=== PATIENT | male | born 1950 | race Caucasian/White ===

== ENCOUNTER 2017-12-26 20:00 | Emergency (ER) | payer MEDICARE, BC, SELFPAY ==
[2017-12-26 20:11] VITALS: BP 131/77; PULSE 85; RESP 15; TEMP 37; O2SAT 97
--- NOTE | 2017-12-26 21:31 | ED.GENADUL_ITS ---
Discharge Plan Disposition Patient Disposition: HOME Condition: Improving Discharge Details Chief Complaint: Laceration Clinical Impression: Laceration of finger of right hand Primary Care Provider: Jerod Trinidad ED Provider: Cain Quinonez Home Meds and New Rx's Prescriptions: New cephalexin [Keflex] 500 mg capsule 500 mg PO QID Qty: 12 RF: 0 Continue ibuprofen 200 MG capsule 2 tab PO daily prn RF: 0 garlic 1 EACH tablet 1 ea PO DAILY RF: 0 saw palmto frt xtr-zinc [place] [Saw [place] Extract (w-zinc)] 1 EACH capsule 1 ea PO DAILY RF: 0 magnesium amino acid chelate 100 MG tablet 100 mg PO DAILY RF: 0 glucosam-chond ka-dolkcr-kc ac 1 EACH capsule 1 ea PO DAILY RF: 0 krill kzo-cibmk-7-dha-epa [Fish Oil with Krill] 1 EACH capsule,delayed release (DR/EC) 2 ea PO DAILY RF: 0 aloecure 2 oz PO DAILY RF: 0 Discharge Instructions Instructions: Care For Your Stitches (ED), Finger Laceration (ED) Additional Instructions: Return immediately to the emergency department for any signs of infection which may include purulent drainage, severe change in pain or discomfort, or significant swelling to the affected area. Take antibiotic as prescribed and until fully complete. Return to the emergency department in 10 days for suture removal if no complications occurred Referrals: [facility] Emergency Dept. [Outside] (Return to the emergency department 10 days for suture removal) Discharge Data Discharge Date/Time-TO BE ENTERED AT DEPARTURE: 12/26/17 21:50 Medical Decision Making [facility] Narrative Medical decision making narrative: chief complaint of right little finger laceration. Right dorsal aspect of little finger laceration measuring total of 3.5 cm. Verbal consent was obtained for wound closure. Digital block technique with 2.5 mL's of 1% lidocaine. A finger tourniquet was applied. Wound explored to base in bloodless field and tendon is visible with no obvious damage no range of motion issues no loss of strength. Wound closed with 4-0 Prolene and 7 simple interrupted sutures were placed. Wound covered with bacitracin and sterile gauze. Patient encouraged to return for signs of infection otherwise return in 10 days for suture removal. Due to depth of wound and exposed tendon patient was placed on Keflex every 6 hours ?3 days patient up-to-date on tetanus. HPI - General Adult General Mode of arrival: ambulatory . Date/Time Provider Initiated Documentation: 12/26/17 20:23 . Limitations to Documentation: no limitations . Information obtained by: patient and RN notes reviewed . History of Present Illness 67 year old M presents to the emergency department with the chief complaint of right little finger laceration, described as mild, with intensity rated at 2. Quality is described as aching, and is localized to the right and upper extremity. Patient reports no radiation. Patient started experiencing this hour(s) (1) and it has been constant. No relieving factors improve symptom(s ), No exacerbating factors reported . Patient notes no other symptoms.. Patient did receive the following treatments prior to arrival, none Related Data Home Medications Medication Instructions Recorded Confirmed Aloecure 2 oz PO DAILY 08/28/16 12/26/17 garlic 1 ea PO DAILY 08/28/16 12/26/17 glucosam-chond ol-hgsrws-zy ac 1 ea PO DAILY 08/28/16 12/26/17 ibuprofen 2 tab PO daily prn 08/28/16 12/26/17 krill cri-lceso-4-dha-epa [Fish 2 ea PO DAILY 08/28/16 12/26/17 Oil with Krill] magnesium amino acid chelate 100 mg PO DAILY 08/28/16 12/26/17 saw palmto frt xtr-zinc [place] 1 ea PO DAILY 08/28/16 12/26/17 [Saw [place] Extract (w-zinc)] Previous Rx's Medication Instructions Recorded cephalexin [Keflex] 500 mg PO QID #12 cap NS 12/26/17 Allergies Allergy/AdvReac Type Severity Reaction Status Date / Time No Known Allergies Allergy Unverified 12/26/17 20:16 General Stated Complaint: Laceration MANDY: 4 Review of Systems Constitutional Denies body ache(s), Denies chills and Denies fever(s) Cardiovascular Denies chest pain and Denies dyspnea Respiratory Denies dyspnea Gastrointestinal Denies abdominal pain, Denies nausea and Denies vomiting Integumentary/Breasts Reports as per HPI and Reports wounds Neurologic Denies confusion and Denies sensory deficit Psychiatric Denies confusion PFSH Family History Mother Heart disease Father Neoplasm Brother Essential hypertension Brother Essential hypertension Brother No problems noted. Brother Heart disease Grandfather Essential hypertension Cerebrovascular accident Grandfather Heart disease Grandmother Heart disease Grandmother No problems noted. Son No problems noted. Daughter Depression Social History Smoking/Tobacco Use Status: Former Tobacco Use Exam Const General: cooperative, no acute distress and not ill appearing Orientation: alert, awake and oriented x3 HENMT Mouth: moist mucous membranes Resp Effort & Inspection: normal respiratory effort, able to speak in complete sentences and no respiratory distress Cardio Rate: regular rate Rhythm: regular rhythm Skin General skin exam: no rashes or lesions noted Neuro General: alert, awake, oriented x3, moves all extremities and no focal motor deficits Sensory Exam: no sensory deficits noted Extrem Right upper extremity: wrist Details: normal to inspection and hand Details: normal capillary refill, neuromotor exam normal, neurosensory exam normal, tendon exam normal, normal ROM of fingers, laceration (dorsal little finger 3.5cm deep with mild bleeding) and other (Appropriate 2 point discrimination is noted) Course Vital Signs Temperature 37.0 C 12/26/17 20:11 Pulse 85 12/26/17 20:11 Respiratory Rate 15 12/26/17 20:11 Blood Pressure 131/77 12/26/17 20:11 Pulse Oximetry 97 12/26/17 20:11 Temperature 37.0 C 12/26/17 20:11 Pulse 85 12/26/17 20:11 Respiratory Rate 15 12/26/17 20:11 Blood Pressure 131/77 12/26/17 20:11 Pulse Oximetry 97 12/26/17 20:11
[2017-12-26] MEDS: Cephalexin 500 MG CAP 1500 MG PO (21:50)
[2017-12-26 21:51] VITALS: BP 110/80; PULSE 88; RESP 18; TEMP 36.8; O2SAT 99
== END 2017-12-26 21:50 | disposition home or self-care (01) ==
LOC: ER 21:39
PROVIDERS: Emergency Provider Nurse Practitioner Family; PCP Emergency Medicine
DX: S61.216A Laceration without foreign body of right little finger without damage to nail, initial encounter (principal); W26.9XXA Contact with unspecified sharp object(s), initial encounter
CPT/HCPCS: 12002; 99283

== ENCOUNTER 2019-02-03 07:00 | Outpatient (CLI) | payer MEDICARE, BC, SELFPAY ==
[2019-02-04 13:18] LABS: PSA, Screening 3.8 ng/ml (0-4.5)
== END 2019-02-03 07:20 ==
PROVIDERS: PCP Emergency Medicine; Visit Provider Emergency Medicine
DX: N40.1 Benign prostatic hyperplasia with lower urinary tract symptoms (principal); Z12.5 Encounter for screening for malignant neoplasm of prostate
CPT/HCPCS: 36415; 84153

== ENCOUNTER 2019-05-04 10:51 | Emergency (ER) | payer MEDICARE, BC, SELFPAY ==
[2019-05-04 10:56] VITALS: BP 115/97; PULSE 70; RESP 15; TEMP 36.4; O2SAT 97
--- NOTE | 2019-05-04 11:06 | ED.GENADUL_ITS ---
Discharge Plan Disposition Patient Disposition: HOME Condition: Stable Discharge Details Chief Complaint: ThroatFB Clinical Impression: Esophageal abrasion Primary Care Provider: Jerod Trinidad ED Provider: Fred Taylor Home Meds and New Rx's Prescriptions: Continued triamcinolone acetonide 0.1 % cream 1 applic TP BID Qty: 80 RF: 0 ibuprofen 200 MG capsule 2 tab PO daily prn RF: 0 garlic 1 EACH tablet 1 ea PO DAILY RF: 0 Saw [place] Extract (w-zinc) 1 EACH capsule 1 ea PO DAILY RF: 0 magnesium amino acid chelate 100 MG tablet 100 mg PO DAILY RF: 0 glucosam-chond uk-ixjftw-ci ac 1 EACH capsule 1 ea PO DAILY RF: 0 Fish Oil with Krill 1 EACH capsule,delayed release(DR/EC) 2 ea PO DAILY RF: 0 aloecure 2 oz PO DAILY RF: 0 Discharge Instructions Additional Instructions: May use 5 to 10 cc of Pepto-Bismol 2-3 times per day as needed for comfort. Please note that this can turn your stool black. Return if you have difficulty breathing, difficulty swallowing, develop a fever or chest pain. Continue all regularly prescribed medications. I recommend a soft diet for 24 hours. Medical Decision Making 68-year-old male presents from home complaining of foreign body sensation in his throat after swallowing a piece of plastic yesterday. He did not choke, vomit, have shortness of breath or chest discomfort. He has had some mild irritative discomfort with swallowing that persist today. Soft tissue neck x-ray obtained without evidence of foreign body. Discussed with the patient this likely represents mucosal irritation. He may trial PRN use of Pepto-Bismol for the coating properties of bismuth. He understands to r eturn if he develops shortness of breath, fever, worsening discomfort, inability to swallow, or any other acute concern. HPI General Mode of arrival: ambulatory . Date/Time Provider Initiated Documentation: 05/04/19 10:53 . Limitations to Documentation: no limitations . Information obtained by: patient . History of Present Illness 68 year old M presents to the emergency department with the chief complaint of Foreign body sensation after swallowing piece of plastic, described as mild, Quality is described as dull, and is localized to the mouth. Patient reports no radiation. Patient started experiencing this day(s) and it has been intermittent. No relieving factors improve symptom(s), No exacerbating factors reported . Patient notes denies chest pain and shortness of breath. Patient did receive the following treatments prior to arrival, none Related Data Home Medications Medication Instructions Recorded Confirmed Aloecure 2 oz PO DAILY 08/28/16 05/04/19 Fish Oil with Krill 2 ea PO DAILY 08/28/16 05/04/19 Saw [place] Extract (w-zinc) 1 ea PO DAILY 08/28/16 05/04/19 garlic 1 ea PO DAILY 08/28/16 05/04/19 glucosam-chond be-xakwjl-br ac 1 ea PO DAILY 08/28/16 05/04/19 ibuprofen 2 tab PO daily prn 08/28/16 05/04/19 magnesium amino acid chelate 100 mg PO DAILY 08/28/16 05/04/19 triamcinolone acetonide 0.1 % 1 applic TP BID #80 gm 01/29/19 05/04/19 topical cream Previous Rx's Medication Instructions Recorded triamcinolone acetonide 0.1 % 1 applic TP BID #80 gm 01/29/19 topical cream Allergies Allergy/AdvReac Type Severity Reaction Status Date / Time No Known Allergies Allergy Verified 05/04/19 11:01 General Stated Complaint: ThroatFB MANDY: 3 Review of Systems Narrative: 4 systems reviewed and otherwise negative [facility] Social History Smoking/Tobacco Use Status: Former Tobacco Use Alcohol Intake: never Drug use: Never Do you feel safe at home: Yes Do you feel safe in your relationship?: Yes Course Vital Signs Vital signs: Vital Signs Temperature 36.4 C L 05/04/19 10:56 Pulse 70 05/04/19 10:56 Respiratory Rate 15 05/04/19 10:56 Blood Pressure 115/97 H 05/04/19 10:56 Pulse Oximetry 97 05/04/19 10:56 Temperature 36.4 C L 05/04/19 10:56 Temperature Source Temporal Artery Scan 05/04/19 10:56 Pulse 70 05/04/19 10:56 Respiratory Rate 15 05/04/19 10:56 Respiratory Effort Non-Labored 05/04/19 11:00 Blood Pressure 115/97 H 05/04/19 10:56 Blood Pressure Position Sitting 05/04/19 10:56 Pulse Oximetry 97 01/21/20 10:56 Oxygen Delivery Method Room Air 05/04/19 10:56 Oxygen Flow Rate 0 05/04/19 10:56 Pain Level 0 05/04/19 10:56
--- NOTE | 2019-05-04 11:14 | DI.RAD_ITS ---
EXAM: XR SOFT TISSUE NECK CLINICAL HISTORY: Swallowed FB, FB sensation TECHNIQUE: COMPARISON: No exams were available for comparison FINDINGS: Two views were obtained. No gross foreign body identified. Laryngeal air column is unremarkable. N o prevertebral soft tissue swelling. IMPRESSION: Negative radiographic study.
[2019-05-04 11:58] VITALS: BP 147/79; PULSE 60; RESP 16; O2SAT 98
== END 2019-05-04 11:58 | disposition home or self-care (01) ==
PROVIDERS: Emergency Provider Emergency Medicine; PCP Emergency Medicine
DX: S27.818A Other injury of esophagus (thoracic part), initial encounter (principal); X58.XXXA Exposure to other specified factors, initial encounter
CPT/HCPCS: 99283; 70360; 99281

== ENCOUNTER 2020-02-10 07:11 | Outpatient (CLI) | payer MEDICARE, BC, SELFPAY ==
[2020-02-15 02:49] LABS: Patient Race White; SARS-CoV-2 RNA Undetected (Undetected); SARS-CoV-2 Specimen Source Nasal
== END 2020-02-10 07:31 ==
PROVIDERS: PCP Emergency Medicine; Visit Provider Emergency Medicine
DX: Z20.828 Contact with and (suspected) exposure to other viral communicable diseases (principal)
CPT/HCPCS: U0003

== ENCOUNTER 2024-02-06 10:00 | Outpatient (CLI) | payer MEDICARE, SELFPAY ==
--- NOTE | 2024-02-06 10:00 | RT.EKG_ITS ---
APPROVED REPORT Exam: Resting ECG Reason for Exam: Annual Patient Location: O HR:55 bpm ECG Measurements Heart Rate 55 AXIS CA 172 P 64 QRSd 102 QRS -27 QT 413 T 34 QTc 395 Conclusion Sinus rhythm...normal P axis, V-rate 50- 99 possible old I
== END 2024-02-06 10:01 | disposition home or self-care (01) ==
LOC: DI.CM 10:00
PROVIDERS: PCP Nurse Practitioner Family; Visit Provider Nurse Practitioner Family
DX: R07.89 Other chest pain (principal)
CPT/HCPCS: 93010

== ENCOUNTER 2024-06-02 02:38 | Outpatient (CLI) | payer MEDICARE, SELFPAY ==
[2024-06-02 13:21] LABS: BUN 14 mg/dL (7-18); CREATININE 1.2 mg/dL (0.70-1.30); Calcium 9.6 mg/dL (8.5-10.1); Chloride 105 mmol/L (98-107); Estimated GFR 63.85 (mL/min/1.73m2); Glucose 100 mg/dL (74-106); Potassium 4.6 mmol/L (3.5-5.1); Sodium 142 mmol/L (136-145)
[2024-06-02 14:48] LABS: Calculated LDL 127 mg/dL (<100); Cholesterol 220 mg/dL (<200); HDL Cholesterol 70 mg/dL (40-60); Triglyceride 118 mg/dL (<150)
[2024-06-02 17:30] LABS: Hemoglobin A1C 5.3 % (<5.7)
== END 2024-06-02 02:39 | disposition home or self-care (01) ==
LOC: LOS 02:38
PROVIDERS: PCP Nurse Practitioner Family; Visit Provider Nurse Practitioner Family
DX: Z13.1 Encounter for screening for diabetes mellitus (principal); Z13.6 Encounter for screening for cardiovascular disorders; Z12.5 Encounter for screening for malignant neoplasm of prostate
CPT/HCPCS: 36415; 80048; 80061; 84153; 83036

== ENCOUNTER 2024-06-24 02:21 | Outpatient (CLI) | payer MEDICARE, SELFPAY ==
[2024-06-24 17:56] LABS: PSA, Screening 11.1 ng/mL (<=6.5)
== END 2024-06-24 02:22 | disposition home or self-care (01) ==
LOC: LOS 02:21
PROVIDERS: PCP Nurse Practitioner Family; Visit Provider Nurse Practitioner Family
DX: R97.20 Elevated prostate specific antigen [PSA] (principal)
CPT/HCPCS: 36415; 84153

== ENCOUNTER 2024-09-02 02:05 | Outpatient (CLI) | payer MEDICARE, SELFPAY ==
--- NOTE | 2024-09-02 05:45 | ETT_ITS ---
APPROVED REPORT Exam: Exercise Treadmill Patient Location: Out-Patient Room/Bed: Stress Nurse: Mckenna Dale RN Ordering Provider:ROJAS PEDRO, Contact Number: [phone] BMI: 25.84 Baseline Rhythm: Sinus Rhythm Comment: Rare PVC's Indications: Substernal chest pain Medical History Medical History: GERD Cardiac Medications: Magnesium Allergies: NKA Cardiac Risk Factors: Family hx, former smoker Previous Cardiac Procedures: None Pretest Chest Pain Characteristics: None Exercise History: Indeterminate Physical Disabilities: None Lung Sounds: Clear to auscultation Heart Sounds: Regular Stress Test Details Test: Exercise stress testing was performed using a Baldemar protocol. Rest Stress HR Resting HR Supine: 60 bpm Max Heart Rate (APMHR): 147 bpm Resting HR Standin bpm Target HR (85% APMHR): 125 bpm Max HR Achieved: 121 bpm % of APMHR: 82 Recovery HR: 69 bpm HR response to stress: Normal HR response to stress BP Resting BP Supine: 148/80 mmHg Resting BP Standin/82 mmHg Max BP: 170/78 mmHg Recovery BP: 148/88 mmHg BP response to stress: Normal blood pressure response to stress. ECG Resting ECG: Sinus Rhythm Ectopy: Rare PVC Stress ECG: Sinus Tachycardia ST Change: Nondiagnostic low heart rate Arrhythmia: Rare PVC Recovery ECG: Sinus Rhythm Recovery ST Change: Nondiagnostic low heart rate Recovery Arrhythmia: None Clinical Reason for Termination: Fatigue, staff concern r/t imbalance Stress Symptoms: Fatigue Exercise duration: 08 min36 sec Highest Stage Reached: Stage 3: 3.4 mph at 14% grade. Exercise capacity: 10.16 METs Angina Score: None Vásquez Treadmill Score: 8.7 Rate Pressure Product: [id number] Stress ECG Conclusion 1. Resting electrocardiogram was normal 2. Patient exercised on the Baldemar protocol and completed a workload of 10 METS, stopping due to fatig ue and provider concerns for balance/coordination on the treadmill 3. Normal heart rate and blood pressure response to exercise. The patient achieved 82% of maximal pr edicted heart rate for age 4. At the heart rate and workload achieved, there was no electrocardiographic evidence of myocardial ischemia 5. There were no dysrhythmias Vásquez Treadmill Score is 8.7 which is Low risk. Stress Test Summary STAGE Time (mins) Speed (mph) Grade (%) HR BP SpO2 SYMPTOMS METS Supine 60 148/80 98% Standing 67 138/82 1 3 1.7 10 92 170/90 98% 4.5 2 6 2.5 12 97 7 3 9 3.4 14 113 10 1 min recovery 85 170/78 98 3 min recovery 71 144/80 98 6 min recovery 69 148/88
== END 2024-09-02 02:25 ==
LOC: DI 02:05
PROVIDERS: PCP Nurse Practitioner Family; Visit Provider Nurse Practitioner Family
DX: R07.2 Precordial pain (principal)
CPT/HCPCS: 93016; 93018; 93017

== ENCOUNTER → 2024-09-09 12:39 | Outpatient (BNVA) | payer MEDICARE, SELFPAY | PROVIDERS: PCP Nurse Practitioner Family; Referring Provider Nurse Practitioner Family; Visit Provider Nurse Practitioner Gerontology | DX: R97.20 Elevated prostate specific antigen [PSA] (principal); Z80.42 Family history of malignant neoplasm of prostate | CPT/HCPCS: 99204; 81003 ==

== ENCOUNTER → 2024-10-14 12:47 | Outpatient (BNVA) | payer MEDICARE, SELFPAY | PROVIDERS: PCP Nurse Practitioner Family; Referring Provider Nurse Practitioner Family; Visit Provider Nurse Practitioner Gerontology | DX: Z80.42 Family history of malignant neoplasm of prostate (principal); R97.20 Elevated prostate specific antigen [PSA]; Z87.442 Personal history of urinary calculi | CPT/HCPCS: 99214 ==

== ENCOUNTER 2025-04-05 07:11 | Outpatient (CLI) | payer MEDICARE, SELFPAY ==
[2025-04-05 22:48] LABS: PSA, Diagnostic 9.0 ng/mL (<=6.5)
== END 2025-04-05 07:12 | disposition home or self-care (01) ==
LOC: LOS 07:11
PROVIDERS: Nurse Practitioner Gerontology; PCP Nurse Practitioner Family; Visit Provider Nurse Practitioner Family
DX: R97.20 Elevated prostate specific antigen [PSA] (principal); Z80.42 Family history of malignant neoplasm of prostate
CPT/HCPCS: 36415; 84153

== ENCOUNTER → 2025-04-13 12:54 | Outpatient (BNVA) | payer MEDICARE, SELFPAY | PROVIDERS: PCP Nurse Practitioner Family; Referring Provider Nurse Practitioner Family; Visit Provider Nurse Practitioner Gerontology | DX: Z80.42 Family history of malignant neoplasm of prostate (principal); R97.20 Elevated prostate specific antigen [PSA] | CPT/HCPCS: 99213 ==